=== PATIENT | male | born 1955 | race Caucasian/White ===

== ENCOUNTER 2019-12-31 23:01 | Emergency (ER) | payer BC ==
[2019-12-31 23:19] VITALS: BP 157/92
[2020-01-01] MEDS ORDERED: DIPH/PERTUSS(ACELL)/TETANUS VAC/PF 0.5 ML SYR (>=10YO) IM ONE ×2 (00:33→03:33)
[2020-01-01] MEDS ORDERED: AMOXICILLIN TR/POT CLAVULANATE 875-125 MG TAB PO ONE ×2 (00:34→03:33)
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
--- NOTE | 2020-01-01 01:18 | RADIOLOGY REPORT (SQ) ---
Left tibia fibula x-ray two view on 01/01/2020 at 12:47 AM CLINICAL INDICATION: Dog bites in left leg, pain COMPARISON: None FINDINGS: There is extensive air in the lateral proximal to mid lower leg soft tissues consistent with the history of dog bites. No radiopaque foreign body is noted. There are no fractures. Visualized joints are well aligned. No bony abnormality is noted. IMPRESSION: No acute bony abnormality.
[2020-01-01] MEDS ORDERED: LIDOCAINE 1% INJ-PF (10 MG/ML) 30 ML SDV INJ ONE (03:33)
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
== END 2020-01-01 04:30 | disposition home or self-care (01) ==
LOC: ER 23:01
DX: S81.852A Open bite, left lower leg, initial encounter (principal); W54.0XXA Bitten by dog, initial encounter; Y93.55 Activity, bike riding; Y92.411 Interstate highway as the place of occurrence of the external cause; Z23 Encounter for immunization
CPT/HCPCS: 99283; 90471; 73590; 90715; 12001; J3490 ×2